=== PATIENT | female | born 1960 | race Caucasian/White ===

== ENCOUNTER 2018-08-10 06:39 | Day surgery (SDC) | payer BC ==
[2018-08-08 15:16] VITALS: BMI 24.6
[2018-08-10] MEDS ORDERED: EPINEPHrine/PF 1 MG/1 ML (1:1,000) AMPULE ONE (07:58)
[2018-08-10] MEDS ORDERED: SODIUM BICARBONATE 8.4% 50 MEQ/50 ML VIAL ONE (07:58)
[2018-08-10] MEDS ORDERED: BUPIVACAINE HCL/EPINEPHRINE/PF 30 ML VIAL IJ ONE (07:58)
[2018-08-10] MEDS ORDERED: LIDOCAINE HCL 2% (20ML MULTI-DOSE VIAL) NR ONE (07:58)
[2018-08-10] MEDS ORDERED: MIDAZOLAM HCL 2 MG/2 ML SINGLE DOSE VIAL ONE (08:22)
[2018-08-10] MEDS ORDERED: fentaNYL CITRATE 250 MCG/5 ML VIAL ONE (08:26)
[2018-08-10] MEDS ORDERED: ROCURONIUM BROMIDE 50 MG/5 ML VIAL ONE (08:26)
[2018-08-10] MEDS ORDERED: PROPOFOL 20 ML ONE (08:26)
[2018-08-10] MEDS ORDERED: DEXAMETHASONE SOD PHOSPHATE 4 MG/1 ML VIAL ONE (08:36)
[2018-08-10] MEDS ORDERED: ONDANSETRON 4 MG/2 ML VIAL ONE ×2 (08:36→10:05)
[2018-08-10] MEDS ORDERED: ceFAZolin SODIUM 1 GM VIAL ONE (08:45)
[2018-08-10] MEDS ORDERED: PHENYLEPHRINE HCL 10 MG/1 ML SINGLE DOSE VIAL ONE (08:47)
[2018-08-10] MEDS ORDERED: NEOSTIGMINE METHYLSULFATE 0.5 MG/ML - 10 ML MDV ONE (10:04)
[2018-08-10] MEDS ORDERED: GLYCOPYRROLATE 0.2 MG/1 ML VIAL ONE ×2 (10:05)
[2018-08-10] MEDS ORDERED: ONDANSETRON 4 MG/2 ML VIAL IVPUSH PRN ×2 (10:38→10:40)
[2018-08-10] MEDS ORDERED: ACETAMINOPHEN 325 MG TABLET (FP) PO PRN (10:38)
[2018-08-10] MEDS ORDERED: PROMETHAZINE HCL 25 MG/1 ML VIAL IVPUSH PRN (10:40)
[2018-08-10] MEDS ORDERED: oxyCODONE HCL 5 MG TABLET PO PRN (10:40)
[2018-08-10] MEDS ORDERED: LACTATED RINGERS SOLUTION 1,000 ML IV SCH ×2 (10:45)
[2018-08-10] MEDS ORDERED: ACETAMINOPHEN 325 MG TABLET (FP) ONE (12:19)
[2018-08-10 13:06] VITALS: BP 109/68; PULSE 71; TEMP 97.9
--- NOTE | 2018-08-11 11:19 | OP ---
DATE OF OPERATION: 08/10/2018 PREOPERATIVE DIAGNOSES: 1. Personal history of breast cancer. 2. 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 3. Deformity of bilateral reconstructed breasts. POSTOPERATIVE DIAGNOSES: 1. Personal history of breast cancer. 2. 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 3. Deformity of bilateral reconstructed breasts. PROCEDURE: 1. Removal of right breast implant with open periprosthetic capsulectomy. 2. Revision of bilateral breast reconstruction. 3. Subcutaneous tissue transfer from abdomen and flank to bilateral breast deformities. 4. Scar revision of lower abdomen and umbilicus (15 cm in length). ATTENDING SURGEON: Guido Simms MD CO-SURGEON: Yazmin Hernandez MD ANESTHESIA: General endotracheal. ESTIMATED BLOOD LOSS: 20 mL. SPECIMEN: 1. Right breast implant for breast examination only. 2. Right breast capsule to pathology. COMPLICATIONS: None. CONDITION: Stable to recovery room, extubated. INDICATIONS: The patient is a 58-year-old female with a history of breast cancer who had previously undergone bilateral [id number] mastectomies with autologous reconstruction using GUERO flaps. The patient subsequently required placement of a right breast implant due to significant amount of fat necrosis in the right flap. The patient now presents several years later with significant asymmetry between the reconstructed breast as well as a capsular contracture around the right breast implant. The patient would like to be smaller overall and we, therefore, have recommended removal of the right breast implant and symmetrizing procedures to both reconstructed breasts in order to correct her deformities. The risks, benefits, and alternatives of the reconstructive procedure were discussed with the patient in detail, and all questions were answered. The risks include but are not limited to bleeding, infection, pain, need for revision or further surgery, residual breast asymmetry, partial or complete skin flap loss, partial or complete GUERO flap loss, damage to neighboring structures including nerves, arteries, veins, and tendons. Patient understands these risks and has elected to proceed with surgery. PROCEDURE: After proper identification and marking of the patient in the preoperative holding area, the patient was transferred to the operating room and placed supine on the table where noninvasive anesthesia monitors were applied, and intravenous access was established. General anesthesia was administered, and the patient was intubated without difficulty. SCD boots were applied to bilateral lower extremities. Intravenous antibiotics were then given. The patient's bilateral breasts, as well as abdomen and flanks, were then prepped and draped in the usual sterile fashion. After a timeout was performed, Dr. Hernandez and myself began working independently as co-surgeons with separate instrument setups. Attention was first turned towards the lower abdomen where a local anesthetic solution of 0.25% Marcaine with 1:200,000 units of epinephrine was infiltrated along the hypertrophic scars around the umbilicus and lower abdomen. A number 15 blade was used to elliptically incise around the hypertrophic port of the lower abdominal scar. This was carried down through the scar tissue into a subscarpal layer. The hypertrophic scar was then removed and discarded. Attention was turned towards the umbilicus which was circumferentially incised just outside of the hypertrophic scar. A curved Iris scissor was then used to completely excise the hypertrophic scar. At this point, standard tumescent solution was infiltrated into the subcutaneous tissue of the abdomen and bilateral flanks. Once adequate time was given for this local anesthetic mixture to take effect, the Micro[employer]ire System was loaded with a 5-mm cannula. Power assisted liposuction was then used to harvest lipoaspirate from the abdomen and bilateral flanks. The lipoaspirate was collected into the backstitch System for later processing. Once an adequate amount of lipoaspirate had been collected, attention was turned towards the closure of the lower abdomen and umbilicus. The lower abdomen was closed in layers with a 2-0 Vicryl in an interrupted buried fashion in the level of Queenie fascia followed by a 3-0 PDS and a buried deep dermal fashion and finally a 3-0 Monocryl in a running subcuticular fashion. The umbilicus was closed in layers with a 3-0 PDS in a buried 3 point deep dermal fashion at the 12, 3, 6, and 9 o'clock positions followed by a 3-0 PDS in a buried deep dermal fashion and finally a 4-0 Monocryl in a running subcuticular fashion. At this point, attention was turned towards the right breast where the GUERO flap skin paddle was outlined. An incision was made along the inferior margin of this skin paddle. Dissection was carried down through the full thickness of the subcutaneous tissue with electrocautery. The underlying breast capsule was then identified. This breast capsule was incised with electrocautery, and the underlying implant was removed and passed off the field for gross examination only. At this point, the breast capsule was palpated and noted to be tight, especially on its more superficial surface. Electrocautery was used to perform capsulectomy, and the capsule was passed off the field to Pathology. Once this was completed, attention was turned towards elevation of the right breast flap. The autologous flap was secured to the chest wall in an elevated fashion using a 2-0 Vicryl suture in a simple interrupted fashion. There was noted to be significant improvement in the right breast contour, and therefore a layered closure of the incision was performed with a 3-0 PDS in a buried deep dermal fashion followed by a 4-0 Monocryl in a running subcuticular fashion. Attention at this point was turned towards the left breast. The preoperative markings were infiltrated with 0.25% Marcaine with 1:200,000 units of epinephrine. A total of 10 mL were used. A number 15 blade was used to make both the vertical and horizontal elliptical incisions. The redundant skin was then removed in a full-thickness fashion from the left breast. A horizontal ellipse was removed just above the level of the inframammary fold, and a vertical ellipse was removed at the level of the breast meridian. A laterally based nipple flap was designed and developed, and care was taken to assure this was maintained while the redundant skin was removed. Once the redundant skin was removed, the T point along the inframammary fold was reapproximated using a 2-0 Prolene suture in a half-buried horizontal mattress fashion. The vertical and horizontal limbs were then reapproximated in a layered fashion using a 3-0 Monocryl in a buried deep dermal fashion followed by a 3-0 Monocryl in a running subcuticular fashion. The nipple reconstruction was transposed more superiorly and was inset using a 3-0 Monocryl in a buried deep dermal fashion followed by a 4-0 Monocryl in a running subcuticular fashion. Once bilateral breast incisions were closed, the lipoaspirate which had been previously harvested was processed, and the isolated adipocytes were loaded into 10 mL syringes. Subcutaneous tissue transfer was then performed to bilateral breast upper poles in order to correct the step-off deformities. There was noted to be an excellent correction in the step-off deformities, and once this was completed, the access incisions were closed with a 5-0 plain gut in a simple interrupted fashion. At this point, dressings consisting of Dermabond followed by Steri-Strips were applied to all incision lines. The umbilicus was dressed with Xeroform followed by an eye patch and Hypafix tape. The patient at this point was placed into a soft surgical bra with care taken to ensure adequate padding with fluffs and ABD pads. The abdomen was dressed with an abdominal binder. At this point, the patient was slowly awakened and was extubated without incident and then was transported to recovery room in stable condition. GUIDO SIMMS M.D. [id number]
--- NOTE | 2018-08-15 15:23 | PATH ---
Surgical Pathology Report Patient Name: SAMUEL CALLE [facility]. Rec. #: [id number] /Age/Gender: 1960 (Age: 58) / F Account: [id number] Location: [facility] AM[facility] Taken: 08/10/2018 Received: 08/10/2018 Reported: 08/15/2018 Physicians: Gely Hairston Specimen(s) Received A: RIGHT BREAST CAPSULE B: RIGHT BREAST IMPLANT C: LEFT BREAST TISSUE Clinical History Malignant neoplasm of right breast Final Diagnosis A. CAPSULE, RIGHT BREAST, CAPSULECTOMY: FIBROUS CAPSULE. B. IMPLANT, RIGHT BREAST, REMOVAL: IMPLANT, DESCRIBED (GROSS EXAMINATION ONLY). C. BREAST, TISSUE, LEFT, EXCISION: BENIGN BREAST TISSUE SHOWING FOCAL DYSTROPHIC OSSIFICATION. SKIN WITH NO PATHOLOGIC FINDINGS. Electronically Signed Melissa Beck M.D. Gross Description A. Received in formalin labeled "right breast capsule," is a 6.5 x 3.5 x 0.8 cm aggregate of cramer-pink, irregular portions of fibrous tissue, consistent with a fibrous capsule. Special Investigator sections are submitted in one cassette. B. Received fresh labeled "right breast implant," is a 9 cm in diameter x 2.5 cm in depth clear, rubbery, intact breast implant. No soft tissue is present. No sections are submitted, gross only. C. Received in formalin labeled "left breast tissue," is a 71 g, 10.0 x 7.5 x 2.0 cm aggregate of multiple portions of fibroadipose tissue and cramer, unremarkable skin. Sectioning reveals foci of white fibrous tissue. Special Investigator sections are submitted in 2 cassettes. /08/10/2018 saudi08/10/2018
== END 2018-08-10 13:07 | disposition home or self-care (01) ==
LOC: FASU 06:39
PROVIDERS: ATTEND Plastic Surgery
PROC: 0HRV07Z Replacement of Bilateral Breast with Autologous Tissue Substitute, Open Approach (ICD-10-PCS; principal; 2018-08-10 08:51)
PROC: 0HPT0JZ Removal of Synthetic Substitute from Right Breast, Open Approach (ICD-10-PCS; 2018-08-10 08:51)
PROC: 0HB7XZZ Excision of Abdomen Skin, External Approach (ICD-10-PCS; 2018-08-10 08:51)
DX: Z85.3 Personal history of malignant neoplasm of breast (principal); Z90.13 Acquired absence of bilateral breasts and nipples; N65.0 Deformity of reconstructed breast; L90.5 Scar conditions and fibrosis of skin
CPT/HCPCS: 88300-TC; 88304-TC; 94760